=== PATIENT | female | born 1995 | race Caucasian/White ===

== ENCOUNTER 2019-10-27 14:48 | Emergency (ER) | payer OTHER ==
[~2019-10-27] VITALS: Ht 170.2 cm; Wt 59.9 kg
--- NOTE | 2019-10-27 15:02 | NUR ---
PT IS IN ROOM #1A. DR ORTIZ EVALUATED THE PT.
--- NOTE | 2019-10-27 15:26 | NUR ---
PT WAS D/C'd TO HOME. D/C INSTRUCTIONS GIVEN TO THE PT.
[2019-10-27 15:28] VITALS: BP 128/81
== END 2019-10-27 15:28 | disposition home or self-care (01) ==
LOC: ER 14:48
DX: Z11.59 Encounter for screening for other viral diseases (principal)
CPT/HCPCS: 99283; U0003; A4663